=== PATIENT | female | born 1995 | race Caucasian/White ===

== ENCOUNTER 2020-05-14 12:11 | Outpatient (CLI) | payer MEDICAID | END 2020-05-14 18:34 | disposition home or self-care (01) | LOC: WSo 12:11 → LDRP 12:11 → WSo 18:34 | PROVIDERS: ATTEND Obstetrics & Gynecology | DX: Z01.419 Encounter for gynecological examination (general) (routine) without abnormal findings (principal); Z3A.00 Weeks of gestation of pregnancy not specified | CPT/HCPCS: 87210; G0463; 99214 ==

== ENCOUNTER 2020-06-17 17:32 | Inpatient (IN) | payer MEDICAID ==
[~2020-06-17] VITALS: Ht 190.5 cm; Wt 158.8 kg
[2020-06-17] VITALS (7 sets, daily range): BP systolic 111–134; BP diastolic 53–75
--- NOTE | 2020-06-17 17:38 | NUR ---
ESTEPHANIA LING presented to unit from ED, accompanied by Significant Other, with c/o WATER BROKE/PRESSURE. ESTEPHANIA LING weighed, gowned, voided, and to bed. EFHM and TOCO applied, VS taken. ESTEPHANIA LING oriented to bed controls, call light, TV, heat, and A/C controls.
--- NOTE | 2020-06-17 18:02 | NUR ---
DR. GUARDADO NOTIFIED OF PT ARRIVAL, RUPTURE STATUS, AND SVE CHECK. NEW ORDERS RECEIVED.
[2020-06-17] MEDS ORDERED: D5 LR IV SOLUTION 1,000 ML IV ONE (18:03)
[2020-06-17 18:05] LABS: BILIRUBIN,URINE NEGATIVE (NEGATIVE); CLARITY,URINE SL CLOUDY; COLOR,URINE AMBER; GLUCOSE, URINE (UA) NEGATIVE (NEGATIVE); KETONES,URINE NEGATIVE (NEGATIVE); LEUKOCYTE ESTERASE ,URINE NEGATIVE (NEGATIVE); NITRITE,URINE NEGATIVE (NEGATIVE); PH,URINE 6.5 (5-9); PROTEIN,URINE 1+ (NEGATIVE)
[2020-06-17 18:13] LABS: BACTERIA,URINE TRACE /HPF
[2020-06-17 18:17] LABS: AMPHETAMINE SCREEN, URINE POSITIVE (NEGATIVE); BENZODIAZEPINES SCREEN URINE NEGATIVE (NEGATIVE); COCAINE SCREEN URINE NEGATIVE (NEGATIVE)
[2020-06-17 18:18] LABS: BARBITURATE SCREEN URINE NEGATIVE (NEGATIVE); CANNABINOID SCREEN, URINE NEGATIVE (NEGATIVE); METHADONE STAT NEGATIVE (NEGATIVE); METHAMPHETAMINE SCREEN URINE S POSITIVE (NEGATIVE); OPIATE SCREEN URINE NEGATIVE (NEGATIVE); OXYCODONE STAT NEGATIVE (NEGATIVE); PROPOXYPHENE STAT NEGATIVE (NEGATIVE); TRICYCLIC ANTIDEPRESSANTS SCRE NEGATIVE (NEGATIVE)
[2020-06-17] MEDS: D5 LR IV SOLUTION 1,000 ML IV SCH (18:27)
[2020-06-17] MEDS ORDERED: AMPICILLIN FOR IV USE 2,000 MG in WATER (STERILE) FOR INJECTION 14.8 ML IV SCH (18:30)
[2020-06-17] MEDS ORDERED: BETAMETHASONE ACE/NA PHOS 6 MG/ML (CELESTONE SOLUSPAN) IM SCH (18:30)
[2020-06-17 19:02] LABS: BASOPHILS % (AUTO) 0 % (0-10); EOSINOPHILS # (AUTO) 0.1 10^3/uL (0.0-0.3); EOSINOPHILS % (AUTO) 1 % (0-10); HEMATOCRIT 32 % (35-52); HEMOGLOBIN 10.3 g/dL (11.5-16.0); LYMPHOCYTES # (AUTO) 2.7 10^3/uL (1.0-4.0); LYMPHOCYTES % (AUTO) 17 % (12-44); MEAN CORPUSCULAR HEMOGLOBIN 30 pg (25-34); MEAN CORPUSCULAR HGB CONC 33 g/dL (32-36); MEAN CORPUSCULAR VOLUME 91 fL (80-99); MEAN PLATELET VOLUME 10.3 fL (9.0-12.2); MONOCYTES # (AUTO) 0.9 10^3/uL (0.0-1.0); MONOCYTES % (AUTO) 6 % (0-12); NEUTROPHILS # (AUTO) 12.5 10^3/uL (1.8-7.8); NEUTROPHILS % (AUTO) 77 % (42-75); PLATELET COUNT 251 10^3/uL (130-400); WHITE BLOOD COUNT 16.4 10^3/uL (4.3-11.0)
--- NOTE | 2020-06-17 19:13 | History & Physical ---
History and Physical Date Seen by Provider: Jun 17, 2020 Time Seen by Provider: 19:05 this patient is a 24-year-old 1 white female with a due date of July 20, 2020 putting her now at 35+ weeks gestation. She presents with complaint of rupture membranes approximately 2-2 and half hours ago. She reported having a bit of a trickle of fluid and then a larger gush and and constant trickling. She denies bleeding, she does not feel contractions. Feel increased pressure and fullness in the pelvis but that has been going on for several days. She was noted to have an elevated CRIS on her last ultrasound. Patient denies use of recreational drugs but has had repeated positive drug screens particularly for methamphetamines Allergies are none Medications are vitamins Medical social and surgical histories are per the antepartum record HEENT exam is normal Neck is supple no lymphadenopathy and no thyromegaly Abdomen is gravid morbidly obese nontender Extremities show no clubbing cyanosis. There is no Homans sign. Pelvic exam per the labor and delivery nurse showed a cervix 1 cm dilated 70 percent face gross rupture membranes with nitrazine positive and with apparent thick meconium monitor shows normal heart rate pattern with occasional contractions and frequent uterine irritability Lab work including a CBC and a wet prep and a GBS culture are pending Bedside ultrasound by the labor and delivery nurse demonstrated vertex presen tation Assessment and plan 35 week gestation with P PROM. Patient has been given a single dose of betamethasone. Patient has been started empirically on ampicillin for GBS prophylaxis. She has received her 2 g bolus and will be given 1 g every 4 hours until she delivers. Plan at this point is expectant management through the night and likely promote delivery if necessary tomorrow. Appears to be thick meconium bike designer will be apprised Anticipation is for vaginal delivery and patient understands that there will be some likelihood of her baby required transfer to a NICU. This patient does have a history of herpes but has had no recent prodrome and has no overt lesions therefore no contraindication to labor and to a vaginal delivery at 35 week gestation with P PROM Allergies and Home Medications Allergies Coded Allergies: No Known Drug Allergies (Unverified , 06/17/20) Patient Home Medication List Home Medication List Reviewed: Yes MANISH GUARDADO MD Jun 17, 2020 19:13
[2020-06-17 19:24] LABS: BAND NEUTROPHILS 0 %; BASOPHILS % (MANUAL) 0 %; EOSINOPHILS % (MANUAL) 0 %; LYMPHOCYTES % (MANUAL) 16 %; MONOCYTES % (MANUAL) 7 %; NEUTROPHILS % (MANUAL) 77 %; RBC MORPH NORMAL
[2020-06-17] MEDS ORDERED: CATHETER FLUSH 10 ML SYR IV SCH (22:00)
[2020-06-17] MEDS: AMPICILLIN FOR IV USE 1,000 MG in WATER (STERILE) FOR INJECTION 7.4 ML IV SCH (22:41)
[2020-06-18] VITALS (34 sets, daily range): BP systolic 91–146; BP diastolic 51–89
[2020-06-18] MEDS: D5 LR IV SOLUTION 1,000 ML IV SCH ×2 (01:20→08:33)
[2020-06-18] MEDS: AMPICILLIN FOR IV USE 1,000 MG in WATER (STERILE) FOR INJECTION 7.4 ML IV SCH ×2 (02:25→06:08)
[2020-06-18] MEDS ORDERED: OXYTOCIN PRE-MIX DRIP 500 ML IV ONE (05:56)
[2020-06-18] MEDS ORDERED: OXYTOCIN PRE-MIX DRIP 500 ML IV SCH ×2 (06:07→11:54)
[2020-06-18] MEDS ORDERED: METOCLOPRAMIDE INJ 10 MG/2 ML (REGLAN) ONE (09:53)
[2020-06-18] MEDS ORDERED: FAMOTIDINE 20MG/2ML IV (PEPCID) ONE (09:54)
[2020-06-18] MEDS ORDERED: CITRIC ACID/SOB CIT (BICITRA) 30 ML UDC ONE (09:54)
[2020-06-18] MEDS ORDERED: ceFAZolin INJECTION 2,000 MG in WATER (STERILE) FOR INJECTION 10 ML IV ONE (10:00)
[2020-06-18] MEDS ORDERED: metroNIDAZOLE 500MG/100ML IVPB 100 ML IV ONE (10:00)
--- NOTE | 2020-06-18 10:03 | Discharge Inst-Surgical ---
Discharge Inst-Surgical Depart Medication/Instructions New, Converted or Re-Newed RX: RX on Chart Consults/Follow Up Patient Instructions: as directed Orders & Referrals Follow Up Appt: RTC Saturday, June 27, 2020 at 930 a.m. for incision check. Call to make follow up appt. for patient in 4 weeks. Wound Care: Remove vladimir, apply benzoin and steri strips. Activity Per routine post instructions. Please call in RX to patient pharmacy. Diet as tolerated Patient may shower or tub bathe as desired. Continue home meds Activity Activity as Tolerated: No Diet Discharge Diet: No Restrictions MANISH GUARDADO MD Jun 18, 2020 10:03
[2020-06-18] MEDS ORDERED: DOCU-143 PO (10:04)
[2020-06-18] MEDS ORDERED: OXYC1TAB12 PO (10:04)
[2020-06-18] MEDS ORDERED: IBUP-1780 PO (10:04)
[2020-06-18] MEDS ORDERED: ceFAZolin 2 GM IV Premixed 50 ML ONE (10:15)
[2020-06-18] MEDS ORDERED: OXYTOCIN PRE-MIX DRIP 1,000 ML IV ONE (10:32)
[2020-06-18] MEDS ORDERED: fentaNYL INJECTION 100 MCG/2 ML AMP ONE (10:32)
[2020-06-18] MEDS ORDERED: ONDANSETRON 4 MG/2 ML (SDV) Z0FRAN ONE (10:32)
--- NOTE | 2020-06-18 10:57 | NUR ---
CM/SS visited with the patient for social service consult. DCF report made due to positive drug screen ID: [id number] The patient and her significant other German Hooks were present in the room. They were both pleasant and willing to talk with this sw. Home: The patient and her significant other/father of baby live together alone. Substance use: The patient denies drug use and stated "I don't do drugs". CM/SS asked patient if she has used substances in the past. She denied use. CM/SS informed the patient and father of baby that this sw is a Mandated pressure washer and will need to report her positive urine drug screen for Amphetamines and Methamphetamines. They both verbalized understanding. DCF report ID : [id number]. Resources: The patient reports that they have everything they need at home for baby. They reports they have a crib, diapers, and clothes. She reports that she had an appointment with [facility] for today; however, she is unable to make it. CM/SS discussed different resources with family and the use of the [facility]. The patient and father of baby gave verbal consent for this sw to make a [facility] referral. CM/SS contacted Arianna ([phone]) from [facility]. Referral made and Arianna states she will reach out to family. Supports: They report that both sides of their families are able and willing to assist with any needs that may arise. German reports that they are a good support system. Occupation: The patient and father of baby are currently unemployed. They are both receiving unemployment benefits. CM/SS will continue to follow.
[2020-06-18] MEDS ORDERED: PHENYLEPHRINE 100 MCG/ML 10 ML (ANESTHESIA) SYR ONE (11:39)
[2020-06-18] MEDS ORDERED: PHENYLEPHRINE INJ 10 MG/ML (FOR DRIP KITS ONLY) ONE (11:39)
[2020-06-18] MEDS ORDERED: KETOROLAC 30 MG/ML VIAL ONE (11:40)
[2020-06-18] MEDS: KETOROLAC 30 MG/ML VIAL IVP SCH ×3 (11:45→23:23)
[2020-06-18] MEDS ORDERED: D5 LR IV SOLUTION 1,000 ML IV SCH (11:54)
[2020-06-18] MEDS ORDERED: TETANUS,DIPTH,PERTUSS P/F (BOOSTRIX) 0.5 ML VIAL IM ONE (12:00)
[2020-06-18] MEDS ORDERED: MEASLES,MUMPS,RUBELLA 1 EA INJ SC ONE (12:00)
[2020-06-18] MEDS ORDERED: ONDANSETRON 4 MG/2 ML (SDV) Z0FRAN IVP PRN (12:00)
--- NOTE | 2020-06-18 12:40 | NUR ---
Report received from Jud SEO SPECIALIST. Pt oriented to room call light and surroundings. call light with in reach. plan of care reviewed with pt and s.o. pt denies pain. ffu/0 with lt pacheco noted.
--- NOTE | 2020-06-18 13:45 | NUR ---
ffu/0 with moderate rubra noted, no clots expressed. vss
[2020-06-18] MEDS: oxyCODONE/APAP 10/325MG (PERCOCET 10) TABLET PO PRN ×3 (13:54→23:23)
--- NOTE | 2020-06-18 16:10 | NUR ---
PT ASSISTED UP TO BATHROOM. PT VOIDED SMALL AMOUNT. +PERICARE, LINENS CHANGED, NEW GOWN PLACED. PT ASSISTED BACK TO BED. CALL LIGHT WITHIN REACH. NO FURTHER NEEDS AT THIS TIME
--- NOTE | 2020-06-18 17:12 | OPERATIVE REPORT ---
DATE OF SERVICE: 06/18/2020 PREOPERATIVE DIAGNOSES: Failure to progress in labor with PPROM and high station at term and suspicion for placental abruption. POSTOPERATIVE DIAGNOSES: Failure to progress in labor with PPROM and high station at term and suspicion for placental abruption with overt placental abruption. OPERATIVE PROCEDURE: Primary low transverse delivery of a viable female with Apgars of 8 and 9 at 1 and 5 minutes respectively, weight of 5 pounds 7 ounces. Cord blood pH of 7.29 and a time of 11:24. OPERATIVE DESCRIPTION: With the patient in the supine position under satisfactory spinal analgesia, the patient was prepped and draped in the usual fashion for abdominal surgery. Frazier catheter was placed in the urinary bladder. A Pfannenstiel incision was made through skin with scalpel, the patient's abdomen entered in the usual manner. Bladder retractor placed into position and clean scalpel used to make a 4 cm hysterotomy incision transversely across the lower uterine segment that was extended bluntly with release of the small amount of amniotic fluid and old coffee ground blood clot and some fresh formed clot and some debris. A viable female was delivered via the uterine incision. had Apgars as noted above. There was a single nuchal cord that was easily released. The infant was bulb suctioned on delivery of the head and again on completion of delivery. Umbilical cord was doubly clamped and cut and the passed to the pediatric nurse in attendance for delivery. Cord bloods were obtained. Placenta delivered spontaneously, Méndez. It was a very fibrotic and very scarred and probably 50% of it was detached with obvious blood clot retroplacentally and old coffee ground appearing blood debris as well. The uterus was exteriorized anterior, was wiped clean with a wet laparotomy sponge. The uterine cavity was stained with hemosiderin as well. The endometrial cavity was wiped clean with a wet laparotomy sponge and the uterine incision closed with a running locked suture of 2-0 Vicryl. Hemostasis was complete. The uterus was returned to the abdominal cavity. All blood clot and debris removed from the abdominal cavity. With sponge and needle counts correct, hemostasis assured. The anterior parietal peritoneum was closed with running suture of 2-0 Vicryl. Rectus muscles were closed with that suture as well. The rectus fascia was closed with 2-0 Vicryl, subcutaneous tissue was closed with 2-0 Vicryl and the skin was stapled. Sponge and needle counts were correct on completion of the procedure. Estimated blood loss was around 300 mL. The patient tolerated the procedure well and remained in the OR as I left. She was pending transferred to the recovery room, the baby remained with the mom. Job ID: [id number] DocumentID: [id number] Dictated Date: 06/18/2020 11:47:01 Carrier Washer Date: 06/18/2020 17:11:58 Dictated By: MANISH GUARDADO MD
--- NOTE | 2020-06-18 19:30 | NUR ---
Pt resting in bed. Introduced self, discussed POC. Pt states pain is tolerable. 10/05. VS taken, assessment performed. Pt states just got up to bathroom not long ago. Denies any complaints. Infant taken to nursery for bath. Pt denies needing anything further at time.
--- NOTE | 2020-06-18 20:10 | NUR ---
Infant remains with this RN. ED called informing that pt is off unit with IV pole, trying to exit building. Fuel Attendant called. Pt informed must stay inside hospital building. Pt back to unit at time, s.o. at side laughing. Informed pt she must stay inside hospital, and not leave unit with IV. Pt verbalized understanding. Pt and s.o. state, "this is like a senior care." Pt and s.o. given extra linen and snacks per request. Pt states was able to walk around the hospital. Now laying in bed. SCDs refused at time. States will wear them before going to sleep. Pt denies needing anything further.
[2020-06-18] MEDS ORDERED: DOCUSATE SODIUM 100 MG (COLACE) CAP PO SCH (21:00)
[2020-06-18] MEDS: DOCUSATE SODIUM 100 MG (COLACE) CAP PO SCH (23:23)
--- NOTE | 2020-06-19 01:30 | NUR ---
Yelling from pt's room heard from nurse's desk. Pt crying. Pt yelling, "you're so abusive to me." This RN to bedside. Pt tearful, covering face with gown. Asked pt if everything is alright. Pt states yes. Denies pain. Continuing to be tearful. S.O. at side of bed, talking on phone. Pt asking this RN if her mother can come in the morning when s.o. leaves. States, "I just want my mom." S.O. continuing to talk on phone at bedside. Asked patient again if she needs anything, pt states no. taken to nursery for quick assessment. returned after assessment. Offered to watch in nursery, pt states wants infant in room. Pt denies any concerns. Encouraged patient to call if needing anything. Pt verbalized appreciation.
[2020-06-19 03:30] VITALS: BP 107/56
--- NOTE | 2020-06-19 03:30 | NUR ---
Patient awake in bed, requesting this RN to assist pt with getting up to bathroom. Assistance given. Hat placed back in toilet again by this RN. Pt successfully voided. Very minimal bleeding noted. Pt back to bed. VS taken. Pt denies needing anything further at time.
[2020-06-19] MEDS: KETOROLAC 30 MG/ML VIAL IVP SCH (05:35)
[2020-06-19] MEDS: oxyCODONE/APAP 10/325MG (PERCOCET 10) TABLET PO PRN ×3 (05:35→17:30)
--- NOTE | 2020-06-19 08:51 | NUR ---
FIDELIA/PARKRE follow up. This sw received Email from Stephanieascencion Henry [facility] worker ([phone]) to call about report. FIDELIA/SS answered follow up questions and informed worker that the baby girl's Meconium was sent for drug testing. Stephanie states she will be sending a DCF worker here to the hospital to do an assessment and speak with family. FIDELIA/SS contacted Cookie in department to notify that [facility] will send a worker to assess family. She verbalized understanding. FIDELIA/SS will continue to follow. Addendum: 06/19/20 at 1504 by JENNIFER MOULTON SS Update: FIDELIA/PARKER met with Stephanie from [facility] on the floor. She spoke with patient and grandmother of the baby. The patient still denies any past or current drug use. Stephanie reports she is going through the court defense attorney to see if baby will need to stay at the hospital until Meconium results are in. At this time, Stephanie states they are not removing baby from parent's custody and have an outpatient plan. This sw gave updated phone numbers for patient and grandmother and provided the number for Arianna at [facility]. FIDELIA/SS updated the patient's nurse and the Nursery.
--- NOTE | 2020-06-19 09:30 | NUR ---
Patient cooperative. no c/o. Patient's mother is here.
[2020-06-19] MEDS: DOCUSATE SODIUM 100 MG (COLACE) CAP PO SCH (09:34)
[2020-06-19 09:35] VITALS: BP 122/70
--- NOTE | 2020-06-19 10:45 | NUR ---
Dr East here to see patient.
--- NOTE | 2020-06-19 10:57 | Progress Note ---
Standard Progress Note Progress Notes/Assess & Plan Date Seen by a Provider: Jun 19, 2020 Time Seen by a Provider: 10:56 Progress/Assessment & Plan this patient is without complaint. She is ambulating, voiding, tolerating oral intake well and has good pain control. Vital Signs 06/18/20 06/19/20 16:00 03:30 Temp 37.1 Pulse 57 Resp 18 B/P (MAP) 107/56 (73) Pulse Ox 97 O2 Delivery Room Air vital signs are stable. Patient is afebrile. The abdomen is benign. Extremities show no clubbing or cyanosis. There is no Homans sign. Assessment and plan postoperative day number 1 status post primary delivery at 35 weeks gestation. Patient is doing well and will have routine convalescence care MANISH GUARDADO MD Jun 19, 2020 10:57
[2020-06-19 12:30] VITALS: BP 119/72
[2020-06-19] MEDS ORDERED: IBUPROFEN 800 MG (MOTRIN) TAB PO ONE (12:34)
[2020-06-19] MEDS: IBUPROFEN 800 MG (MOTRIN) TAB PO SCH ×2 (12:55→18:20)
--- NOTE | 2020-06-19 14:30 | NUR ---
Stephanie Liang here from DCF to see pt.
--- NOTE | 2020-06-19 15:39 | NUR ---
Patient resting quietly. Mother at bedside. Grandmother feeding babe without difficulty. call light within reach.
--- NOTE | 2020-06-19 16:00 | NUR ---
2+ edema to lower extremities. Addendum: 06/19/20 at 1930 by ANIYA WILKERSON RN Non pitting.
[2020-06-19 16:32] VITALS: BP 114/67
--- NOTE | 2020-06-19 17:10 | NUR ---
This nurse in hallway and heard patient moaning/crying loudly. I enter room with Wilman Abraham RN, Risa Walker RN. Patient sitting on bedside moaning and asking for her mom. Patient was incontinent of urine . Floor was wet. We helped patient to BR. Patient moved slowly. Patient's mother here. Dayana care given. Gown changed. Linen change. Patient back to bed. Patient calm. Pain med given. Call light within reach. No other concerns voiced at this time.
[2020-06-19 20:00] VITALS: BP 119/59
[2020-06-20] VITALS: BP 119/80
--- NOTE | 2020-06-20 | NUR ---
Pt woke for medications and VS, Pt difficult to arouse and inappropriate to questions,
[2020-06-20] MEDS: IBUPROFEN 800 MG (MOTRIN) TAB PO SCH ×3 (00:11→13:21)
[2020-06-20] MEDS: DOCUSATE SODIUM 100 MG (COLACE) CAP PO SCH ×2 (00:11→09:34)
[2020-06-20] MEDS: oxyCODONE/APAP 10/325MG (PERCOCET 10) TABLET PO PRN ×3 (00:11→13:21)
[2020-06-20 03:45] VITALS: BP 113/75
--- NOTE | 2020-06-20 05:45 | NUR ---
Pt states she needs to void, pt in position to get out of bed but wants to wait. Pt is not verbal and just lies there and says she is hurting. Oral pain medications are given and pt advised to get up to void soon
--- NOTE | 2020-06-20 06:20 | NUR ---
Pt hits emergency light to tell me she voided. pt still not willing to get out of bed. this RN advised pt that she will need to get up before the bed can be cleaned. Pt eventually got up to void while bed was cleaned. Pt's mother assisted with getting pt new clothing to wear.
--- NOTE | 2020-06-20 07:00 | NUR ---
REPORT FROM PHYLLIS UGALDE.
--- NOTE | 2020-06-20 08:00 | NUR ---
DR DE LA CRUZ HERE VISITING VISITING WITH PT.
--- NOTE | 2020-06-20 08:05 | NUR ---
PT SITTING UP IN CHAIR EATING BREAKFAST, IN OPEN CRIB AT BEDSIDE, PTS MOTHER SLEEPING ON COUCH.
--- NOTE | 2020-06-20 08:05 | Progress Note ---
Standard Progress Note Progress Notes/Assess & Plan Date Seen by a Provider: Jun 20, 2020 Time Seen by a Provider: 08:04 Progress/Assessment & Plan this patient is without complaint. She is ambulating, voiding, tolerating oral intake well and has good pain control. Vital Signs 06/18/20 06/19/20 16:00 03:30 Temp 37.1 Pulse 57 Resp 18 B/P (MAP) 107/56 (73) Pulse Ox 97 O2 Delivery Room Air vital signs are stable. Patient is afebrile. The abdomen is benign. Extremities show no clubbing or cyanosis. There is no Homans sign. Assessment and plan postoperative day number 1 status post primary delivery at 35 weeks gestation. Patient is doing well and will have routine convalescence care June 20, 2020 Patient without complaint. She is ambulating, voiding, tolerating oral intake well and has good pain control. Patient is requesting discharge home. Vital Signs Date Time Temp Pulse Resp B/P (MAP) Pulse Ox O2 Delivery O2 Flow Rate FiO2 06/20/20 03:45 36.7 80 18 113/75 (88) Room Air 06/20/20 00:00 36.5 80 18 119/80 (93) Room Air 06/19/20 20:00 36.7 67 18 119/59 (79) 96 Room Air 06/19/20 16:32 37.1 64 18 114/67 (83) 95 Room Air 06/19/20 13:37 Room Air 06/19/20 12:30 36.8 64 18 119/72 (88) 97 06/19/20 09:35 36.5 59 18 122/70 (87) 97 I & O 06/20/20 07:00 Intake Total 1500 ml Balance 1500 ml vital signs are stable. Patient is afebrile. The abdomen is benign Extreme show no clubbing cyanosis. There is no Homans sign. There is some pretibial pitting edema that is normal. Assessment and plan postoperative day number 2 status post primary delivery at 35 weeks gestation doing well plan is for discharge home with follow-up in clinic Final Diagnosis 35 week primary delivery MANISH GUARDADO MD Jun 20, 2020 08:05
--- NOTE | 2020-06-20 08:10 | Discharge Summary ---
Discharge Summary at 35 week primary delivery this patient is a 24-year-old 1 female who is admitted with the P PROM at 35 weeks gestation on June 17, 2020. Patient was observed through the night given betamethasone and started on prophylactic ampicillin. She did contract somewhat through the night the morning of June 18 she was au gmented with Pitocin. She began experiencing increased pain decision was made to proceed with delivery secondary to suspicion for placental abruption with failure to progress and high station at term. Patient was taken the operating room where primary delivery was performed. Patient recovered uneventfully. The procedure was uncomplicated. On June 19 which was postoperative day number 1 patient is ablating, voiding, tolerating oral intake well had routine care. She was stable through the day. Now on June 20 postoperative day number 2 patient again is doing well. She is requesting discharge home. She is ambulating, voiding, tolerating oral intake well has good pain control. This determined she can be discharged home. principal diagnoses this hospitalization is primary delivery at 35+ weeks gestation Secondary diagnoses are the PPROM, placental abruption, positive UDS, morbid obesity, failure to progress in labor, I station in labor Operation procedures include monitoring, IV antibiotics, spinal analgesia, primary delivery Patient was given appropriate discharge instructions verbally and writing copy of placed in chart. Discharge medications are Percocet and Motrin and MANISH Banegas MD Jun 20, 2020 08:10
[2020-06-20 08:30] VITALS: BP 109/55
--- NOTE | 2020-06-20 08:30 | NUR ---
INITIAL ASSESSMENT COMPLETED, VSS, NO DISTRESS NOTED, ASSISTED PT TO BR, VOIDED, REFUSED TO SHOWER AT THIS TIME, BACK TO BED.
--- NOTE | 2020-06-20 11:30 | NUR ---
ERIC REMOVED, STERI-STRIPS PLACED, PT TOLERATED WELL. PTS MOTHER AT BEDSIDE REQUESTING MORE BOTTLES FOR BABY. VERY LITTLE BONDING NOTED WITH MOTHER/INFANT, PTS MOTHER APPEARS TO BE THE ONE CARING FOR . WILL MONITOR CLOSELY. ENCOURAGED MOTHER TO FEED INFANT AT NEXT FEEDING TO SEE HOW TOLERATES FEEDING, PT VERBALIZES UNDERSTANDING.
[2020-06-20 13:19] VITALS: BP 144/71
--- NOTE | 2020-06-20 14:10 | NUR ---
ESTEPHANIA LING demonstrates understanding of discharge instructions and accurately returns instructions upon questioning. Copy of Post-Discharge Instructions given to PT. ESTEPHANIA LING is able to manage continuing needs after discharge. Patients belongings returned to . Patient discharged from [id number] on 06/20/20 at 1410. ESTEPHANIA LING ROOMING IN AT THIS TIME UNTIL INFANT DISCHARGED.
[2020-06-23] MEDS ORDERED: IBUPROFEN 800 MG (MOTRIN) TAB PO SCH (12:00)
== END 2020-06-20 14:10 | disposition home or self-care (01) | DRG 786 ==
LOC: LDRP 17:32 → WSo 17:32 → LDRP 18:02 → WSo 18:19 → LDRP 20:27
PROVIDERS: ADMIT Obstetrics & Gynecology; ATTEND Obstetrics & Gynecology
PROC: 10D00Z1 Extraction of Products of Conception, Low, Open Approach (ICD-10-PCS; principal; 2020-06-18 10:47)
DX: O42.913 Preterm premature rupture of membranes, unspecified as to length of time between rupture and onset of labor, third trimester (principal); O45.93 Premature separation of placenta, unspecified, third trimester; O99.214 Obesity complicating childbirth; E66.01 Morbid (severe) obesity due to excess calories; O62.0 Primary inadequate contractions; Z3A.35 35 weeks gestation of pregnancy; Z37.0 Single live birth
CPT/HCPCS: 36415; 80306; 81000; 85007; 85027; 86780; 86850; 86900; 86901; 87081; 87210; 94664; 99212